=== PATIENT | male | born 2000 | race Caucasian/White ===

== ENCOUNTER 2022-08-08 09:43 | Emergency (ER) | payer OTHER, BC ==
[2022-08-08] MEDS ORDERED: lidocaine 1% 20 ML MDV SUBQ ONE (10:00)
[2022-08-08] MEDS ORDERED: BACITRACIN ZINC OINT 1 PACKET TOP STA (10:36)
--- NOTE | 2022-08-08 10:39 | ED Physician Documentation ---
PD HPI SKIN - Stated complaint Stated Complaint: LT PINKIE LAC - Chief complaint Chief Complaint: Laceration - History obtained from History obtained from: Patient - Additional information Additional information: The patient comes to the emergency department chief complaint of laceration to left small finger. 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 Patient denies any other injuries. He has had full range of motion since. He states his last tetanus was within the last 10 years. Patient came to the ED right after the injury happened. No other complaints at this time. PD PAST MEDICAL HISTORY - Allergies Allergies/Adverse Reactions: Allergies Allergy/AdvReac Type Severity Reaction Status Date / Time No Known Drug Allergies Allergy Verified 08/08/22 09:52 PD ED PE NORMAL - Vitals Vital signs reviewed: Yes - General General: Alert and oriented X 3, No acute distress, Well developed/nourished - HEENT HEENT: Atraumatic, EOMI, Moist mucous membranes - Neck Neck: Supple, no meningeal sign - Cardiac Cardiac: Strong equal pulses - Respiratory Respiratory: No respiratory distress - Abdomen Abdomen: Soft, Non tender, Non distended - Derm Derm: Normal color, Warm and dry, No rash, Other (2.5 cm laceration over the mid dle phalanx of left small finger. Approximate depth 3 mm. Bleeding controlled. No foreign body. No tendon noted in for wound.) - Extremities Extremities: No deformity, Other (Full range of motion left small finger with intact extension to resistance at DIP joint. 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 Function intact.) Anesthesia: Lidocaine 1% Wound preparation: Betadine, Irrigated copiously NS, Wound explored, To the base Skin layer closure: Nylon, Interrupted, Size #-0 - enter number (5.0), Sutures - enter # (5) Other: Patient tolerated well, No complications, Neurovascular intact, Dressing applied, Tetanus UTD PD Medical Decision Making - ED course Complexity details: considered differential, d/w patient ED course: The patient's wound was repaired as above. We discussed wound care at home, as well as the timeline for suture removal and the usual indications for return sooner . Departure - Departure Disposition: Home, Self Care Clinical Impression: Laceration Condition: Stable Instructions: ED Laceration Hand Comments: Your wound was repaired with 5 sutures today. These are synthetic sutures and will need to be taken out in 7 days. You may be seen at urgent care/walk-in, your primary doctor's office, or here in the emergency department if you cannot be seen in the other venues to have this done. Please generally keep the wound clean and dry. You may let water and soap run over the wound but please do not rub, scrub, or immerse your wound until sutures are removed. This is to prevent development of infection. In general, lacerations do very well, and generally do not get infected but if you begin to notice redness or swelling spreading progressively away from the wound, or if the wound splits open and begins to appear "mushy", then you should have it checked.
[2022-08-08 11:04] VITALS: BP 107/67
== END 2022-08-08 10:58 | disposition home or self-care (01) ==
LOC: ED 09:43
DX: S61.217A Laceration without foreign body of left little finger without damage to nail, initial encounter (principal); W26.0XXA Contact with knife, initial encounter; Y93.89 Activity, other specified; Y99.0 Civilian activity done for income or pay
CPT/HCPCS: 12001; 99282; A9270

== ENCOUNTER 2022-11-18 15:52 | Emergency (ER) | payer OTHER, BC ==
[2022-11-18 15:56] VITALS: BP 130/86; O2SAT 98
[2022-11-18] MEDS ORDERED: lidocaine 1% 20 ML MDV SUBQ ONE (16:01)
[2022-11-18] MEDS ORDERED: TETANUS/DIPHTHERIA/PERTUSSIS 0.5 ML SYRINGE IM ONE (16:02)
--- NOTE | 2022-11-18 16:04 | ED Physician Documentation ---
History of Present Illness - Stated complaint Stated Complaint: L FINGER LAC - Chief complaint Chief Complaint: Laceration - Additonal information Additional information: acute left thumb laceration sustained when cutting olga for his job. Uncertain of last tetanus. Has a flap laceration on the ulnar side of the distal tip left thumb. Neurovascular intact. Review of Systems Skin: reports: Laceration (s) PD PAST MEDICAL HISTORY - Allergies Allergies/Adverse Reactions: Allergies Allergy/AdvReac Type Severity Reaction Status Date / Time No Known Drug Allergies Allergy Verified 11/18/22 15:54 PD ED PE EXPANDED - Extremities Extremities: Left finger(s) ("U" Shaped laceration distal tip left thumb ulnar side. Bleeding controlled with pressure. Flexion extension at PIP preserved. Neurovascular intact otherwise) Results - Vitals Vitals: Vital Signs - 24 hr 11/18/22 15:54 Temperature 36.5 C Heart Rate 60 Respiratory 16 Rate Blood Pressure 130/86 H O2 Saturation 98 Oxygen O2 Source Room air Procedures - Laceration (location) left thumb Length in cm: 2 Wound type: Flap Neurovascular status: Sensory intact, Motor intact Tendon involvement: Tendon intact Anesthesia: Lidocaine 1% Wound preparation: Chlorhexadine, Irrigated copiously NS Skin layer closure: Dermabond, Other (Superficial flap laceration not amenable to primary closure. 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 He has a flap laceration resulting in a skin defect not amenable to primary closure. Defect was closed with Dermabond. Tetanus updated today. Usual wound care and routine emergent return precautions discussed. Tetanus updated today. [id number] completed at the bedside Departure - Departure Disposition: 01 Home, Self Care Clinical Impression: Work related injury Avulsion of skin of thumb Qualifiers: Encounter type: initial encounter Laterality: left Qualified Code(s): S61.002A - Unspecified open wound of left thumb without damage to nail, initial encounter Condition: Stable Comments: You have a skin avulsion which is basically a very deep laceration to the skin of your thumb. We could not close this with sutures. We did place a skin product called Dermabond which is a form of glue over the avulsion. This will wear away over the next week. Once the glue wears away the avulsion will have to heal from inside out. This will type likely take 1 to 2 weeks. Return to the ER if you have any concerns of infection. The Dermabond requires no special care. Do not apply antibiotic ointment to it as it will cause it to wear away quicker. You can return to work normally on Monday though I do recommend that you bandage and pad your finger for comfort. Forms: PCP List
== END 2022-11-18 16:43 | disposition home or self-care (01) ==
LOC: ED 15:52
DX: S61.002A Unspecified open wound of left thumb without damage to nail, initial encounter (principal); W26.0XXA Contact with knife, initial encounter; Y99.0 Civilian activity done for income or pay
CPT/HCPCS: 1040M; 12001; 90471; 90715; 99283